=== PATIENT | female | born 1990 | race African-American/Black ===

== ENCOUNTER → 2016-04-03 | Emergency (ER) | payer OTHER ==
[~2016-04-03] VITALS: Ht 162.6 cm; Wt 72.6 kg
[~2016-04-03] MED LIST: IBUPROFEN600 MG ORAL; MACROBID100 MG ORAL; NKM; NYSTATIN-TRIAMC15 G2 TP
[2016-04-03 15:06] VITALS: BP 147/74
[2016-04-03 15:08] VITALS: BP 147/74
--- NOTE | 2016-04-03 19:21 | Emergency Room Report ---
History of Present Illness General Chief Complaint: Skin Rash/Abscess Source: Patient Present Illness HPI Patient presents with complaints of itching to the left areolar area. Patient reports seen this area for the past 2-3 months there is some mild flaking of the skin now, denies any pain with touch denies any erythema or fullness, patient does have a piercing in that area, however she states she's had that for the last one year, denies any axilla pain Denies any other chest pain or shortness of breath And essentially complains of the puritic nature Allergies: Coded Allergies: No Known Allergies (Unverified , 05/23/14) Patient History Past Medical History: see triage record Pertinent Family History: none Last Menstrual Period: 03/31/2016 Now: No : 1 Para: 0 Reviewed Nursing Documentation: PMH: Agreed, PSxH: Agreed Nursing Documentation-PMH Past Medical History: No Stated History Review of Systems All Other Systems: negative except mentioned in HPI Physical Exam Vital Signs Date Time Temp Pulse Resp B/P Pulse Ox O2 Delivery O2 Flow Rate FiO2 04/03/16 13:45 98.1 90 16 99 Room Air 04/03/16 15:06 147/74 Sp02 EP Interpretation: reviewed, normal General Appearance: well appearing, no apparent distress Head: normocephalic, atraumatic Eyes: bilateral eye EOMI, bilateral eye PERRL ENT: normal pharynx, no angioedema Neck: supple Respiratory: lungs clear Musculoskeletal: normal inspection Neurologic: alert, oriented x3 Skin: other - The left areole reveals, mild flaking, no obvious erythema, no fluctuance, there is a piercing in place without any fullness Lymphatic: no adenopathy Medical Decision Making Diagnostic Impression: Primary Impression: Rash and other nonspecific skin eruption ER Course With the exam and findings patient was recommended to remove the foreign body/ piercing There is also a component of fungal type pathology Patient was recommended to follow up closely with her primary physician, as dermatology consultation will also be recommended There are no signs of any involvement of the breast tissue itself, nevertheless close followup is recommended Last Vital Signs Date Time Temp Pulse Resp B/P Pulse Ox O2 Delivery O2 Flow Rate FiO2 04/03/16 15:08 98.1 80 16 147/74 99 Room Air Status: unchanged Disposition: HOME, SELF-CARE Condition: Stable Scripts Nystatin/Triamcin (NYSTATIN-TRIAMCINOLONE CREAM) 15 Gm Cream..g. 15 GM TP BID for 7 Days, GM Prov: DONNY MALDONADO D.O. 04/03/16 Referrals: [facility],REFERRIN (PCP) Patient Instructions: Rash Additional Instructions: Patient is provided with the discharge instructions notified to follow up with primary doctor in the next 2-3 days otherwise return to the er with any worsening symptoms. Please note that this report is being documented using [employer] technology. This can lead to erroneous entry secondary to incorrect interpretation by the dictating instrument. DONNY MALDONADO D.O. Apr 03, 2016 19:21
== END | disposition home or self-care (01) ==
LOC: EMR 15:00
DX: R21 Rash and other nonspecific skin eruption (principal)
CPT/HCPCS: 10120

== ENCOUNTER 2016-09-10 22:30 | Emergency (ER) | payer SELFPAY ==
[~2016-09-10] VITALS: Ht 162.6 cm; Wt 70.3 kg
[2016-09-10 23:10] VITALS: BP 140/96
[2016-09-10] MEDS ORDERED: MYCOLOG CREA1 APPLIC TOPIC (23:17)
[2016-09-10] MEDS ORDERED: FLUCONAZOLE100 MG ORAL (23:17)
--- NOTE | 2016-09-10 23:18 | Emergency Room Report ---
History of Present Illness General Chief Complaint: Skin Rash/Abscess Source: Patient, Medical Record Present Illness HPI Is a 26-year-old female who presents with a rash on her nipples. His been on and off for a year. Was seen here before. Never had followup with hog killer a specialist with the chief. Worse when she wear a bra. No other complaint. No drainage. No fever chills but no weight loss. Allergies: Coded Allergies: No Known Allergies (Unverified , 05/23/14) Patient History Past Medical History: see triage record, old chart reviewed Past Surgical History: other Pertinent Family History: none Social History: Denies: smoking Last Menstrual Period: 08/30/16 Now: No : 0 Para: 0 Immunizations: other Reviewed Nursing Documentation: PMH: Agreed, PSxH: Agreed Nursing Documentation-PM Past Medical History: No Stated History Review of Systems Eye: Denies: blurred vision, eye pain ENT: Denies: ear pain, nose congestion, throat swelling Respiratory: Denies: cough, shortness of breath Cardiovascular: Denies: chest pain, palpitations Gastrointestinal: Denies: abdominal pain, diarrhea, nausea, vomiting Musculoskeletal: Denies: back pain, joint pain Skin: Denies: rash Neurological: Denies: headache, numbness Endocrine: Denies: increased thirst, increased urine Hematologic/Lymphatic: Denies: easy bruising All Other Systems: negative except mentioned in HPI Physical Exam Vital Signs Date Time Temp Pulse Resp B/P Pulse Ox O2 Delivery O2 Flow Rate FiO2 09/10/16 22:45 97.9 69 18 157/90 98 Room Air vitals normal except high blood pressure Sp02 EP Interpretation: reviewed, normal General Appearance: well appearing, no apparent distress, alert Head: normocephalic, atraumatic Eyes: bilateral eye EOMI, bilateral eye PERRL ENT: hearing grossly normal, normal pharynx Neck: full range of motion, supple, no meningismus Respiratory: chest non-tender, lungs clear, normal breath sounds, other - Breast exams: Done with female RN creative services writer. Patient has dry skin and skin breakdown over the areola bilat. No drainage. No evidence of cellulitis. No mass on breast exam. Cardiovascular #1: regular rate, rhythm, no murmur Gastrointestinal: normal bowel sounds, non tender, no mass, no organomegaly, no bruit, non-distended Musculoskeletal: back normal, gait/station normal, normal range of motion Psychiatric: mood/affect normal Skin: warm/dry Medical Decision Making Diagnostic Impression: Primary Impression: Dermatitis ER Course Patient with dermatitis/rash to the areolas bilaterally. This is probably fungal. Cannot rule out neoplastic process. She will need to see specialists for biopsy. We'll refer her back to her primary care for referral. Last Vital Signs Date Time Temp Pulse Resp B/P Pulse Ox O2 Delivery O2 Flow Rate FiO2 09/10/16 22:45 97.9 69 18 157/90 98 Room Air Status: improved Disposition: HOME, SELF-CARE Condition: Stable Scripts Nystatin/Triamcinolone (Nystatin-Triamcinolone Ointm) 15 Gm Oint...g. 1 APPLIC TOPIC TID, #30 APPLIC Prov: SANDY OWENS M.D. 09/10/16 Fluconazole (FLUCONAZOLE) 100 Mg Tablet 100 MG ORAL DAILY, #7 TAB 0 Refills Prov: SANDY OWENS M.D. 09/10/16 Referrals: NOT CHOSEN [facility]/,REFERRING (PCP) Patient Instructions: Rash Additional Instructions: Followup with your doctor in a week. You would need a referral to see a hog killer for biopsy. You may need a mammogram. Return if worse. SANDY OWENS M.D. Sep 10, 2016 23:18
[2016-09-10 23:24] VITALS: BP 140/96
== END 2016-09-10 23:25 | disposition home or self-care (01) ==
LOC: EMR 23:12
DX: L30.9 Dermatitis, unspecified (principal)
CPT/HCPCS: 99284